=== PATIENT | male | born 1940 | race Caucasian/White ===

== ENCOUNTER 2017-01-25 09:29 | Emergency (ER) | payer MEDICARE, OTHER ==
[~2017-01-25] VITALS: Ht 180.3 cm; Wt 111.4 kg
[~2017-01-25 09:29] MED LIST: IBUP200T48 PO; LEVO200T PO; TAM4 PO
[2017-01-25 09:39] VITALS: BP 187/59; PULSE 61; RESP 24; O2SAT 96
--- NOTE | 2017-01-25 09:42 | ED.REPORT ---
HPI-General Illness Date of Service January 25, 2017 ED Provider: Jairo Dalton MD Pt is a 76 year old male with a hx of DM and a thyroidectomy presenting to the ED complaining of a suspected Levothyroxine imbalance. Associated symptoms include diaphoresis, worse at night, muscle cramping, back spasms, fatigue, and dyspnea on exertion onset 2 weeks ago. Denies dysuria, decreased urination, chest pain or hx of heart problems. He reports that his dosage of Levothyroxine changed from 50-100mg 2 months ago and that he was advised by his PCP to come in to the ER if he developed his current symptoms. He reports that these symptoms began about 6 months ago, and has been seeing his PCP Dr. Taryn Watson regularly for blood tests and medication adjustment. Pt states that the next available appointment with his PCP is in 3 months. Nursing Notes Stated Complaint: THYROXIAN IMBALANCE Chief Complaint: General Complaint Nursing Notes Reviewed: Yes Allergies: Coded Allergies: Sulfa (Sulfonamide Antibiotics) (Verified Allergy, Severe, SWELLING, ) Scheduled Levothyroxine (Levothyroxine) 100 Mcg Tablet 100 MCG PO M,W,,SA Levothyroxine (Levothyroxine) 100 Mcg Tablet 200 MCG PO T,,DESAI Levothyroxine (Levothyroxine) 50 Mcg Tablet 50 MCG PO DAILY General Time Seen by MD: 09:39 Chief Complaint Other (Fatigue) Hx Obtained From: Patient, Spouse Arrived By: Walk-in Sudden in Onset?: No Onset Occurred: 1 week ago Symptom Duration: Since onset Severity: Current: No pain currently Severity: Maximum: No pain Recent Healthcare: No recent doctor visit, No recent hospitalization Similar Sx Previous: Yes Past Medical History Past Medical History Nephrolithiasis Reports: Diabetes mellitus Past Surgical History Prostate surgery - cold laser Kidney stone removal Thyroidectomy Family History Noncontributory Smoking History Unknown if Ever Smoker Social History Alcohol Use: Denies alcohol use Other Social History: Ambulatory Status Independent Review of Systems Full Review of Systems Constitutional: Reports: Fatigue Respiratory: Reports: Dyspnea on exertion Cardiovascular: Denies: Chest pain Male: Denies Dysuria, Denies Urination decreased Skin: Reports Diaphoresis Complete sys rev & neg: except as marked. Physical Exam Vital Signs Vital Signs Date Time Temp Pulse Resp B/P Pulse Ox O2 Delivery O2 Flow Rate FiO2 01/25/17 12:15 36.6 65 16 171/68 96 Room Air 01/25/17 12:06 36.6 65 16 171/68 96 Room Air 01/25/17 09:39 36.6 61 24 187/59 96 Room Air Initial VS: Reviewed General/Constitutional: Well-developed, Well-nourished Head / Eyes: Atraumatic, Normocephalic, PERRL ENT: Conjunctiva normal Neck: Supple Respiratory: Breath sounds normal, Clear to auscultation, No respiratory distress Abdomen / GI: No distention Skin: Warm, Dry, No cyanosis Neurologic: Alert, Oriented, Nonfocal Psychiatric: Mood/affect normal, Behavior normal, Normal thought content Cardiovascular: Heart rate NL, Regular rhythm, Heart sounds NL, No gallop, No murmurs, No rubs Interpretation & Diagnostics Lab Results Interpretation Result Diagram: 01/25/17 1010 01/25/17 1010 Test 01/25/17 10:10 01/25/17 12:25 White Blood Count 9.3th/mm3 (3.8-10.1) Red Blood Count 4.52mil/mm3 (4.40-5.80) Hemoglobin 12.9g/dL (13.8-17.2) Hematocrit 38.9% (41.0-50.0) Mean Corpuscular Volume 86.1fL (81-100) Mean Corpuscular Hemoglobin 28.5pg (27.0-35.0) Mean Corpuscular Hemoglobin Concent 33.2% (32.0-37.0) Red Cell Distribution Width 13.7% (12.3-15.4) Platelet Count 231bil/L (150-400) Neutrophils (%) (Auto) 61.1% (40-74) Lymphocytes (%) (Auto) 23.3% (14-46) Monocytes (%) (Auto) 13.1% (4-12) Eosinophils (%) (Auto) 2.3% (0-5) Basophils (%) (Auto) 0.1% (0-3) Sodium Level 141mEq/L (134-144) Potassium Level 4.0mEq/L (3.5-5.2) Chloride Level 104mEq/L (97-108) Carbon Dioxide Level 23mmol/L (18-29) Blood Urea Nitrogen 21mg/dL (8-27) Creatinine 0.93mg/dL (0.76-1.27) Estimat Glomerular Filtration Rate 84mL/min (>59) Glucose Level 113mg/dL (60-99) Calcium Level 9.3mg/dL (8.5-10.1) Magnesium Level 2.1mg/dL (1.6-2.6) Total Bilirubin 0.4mg/dL (0.0-1.2) Aspartate Amino Transf (AST/SGOT) 11U/L (0-50) Alanine Aminotransferase (ALT/SGPT) 11U/L (0-44) Alkaline Phosphatase 90U/L (25-160) Troponin T 0.010ug/L (0.0-0.011) Pro-B-Type Natriuretic Peptide 440.7pg/mL (0-486) Total Protein 6.5g/dL (6.4-8.4) Albumin 3.7g/dL (3.4-5.0) Thyroid Stimulating Hormone (TSH) 0.005uIU/mL (0.450-4.500) Hold Marie Top Tube Received (Received) Hold Urine Received (Received) ECG Interpretation ECG Interpretation: 1st degree V block. No acute ST segment changes. Time: 10:35 Interpreted by: ED physician Normal ECG Interpretation: Normal rate (61), Normal sinus rhythm X-Ray Chest Interpretation Chest Xray Interpretation: IMPRESSION: No acute cardiopulmonary disease process. Dictated by: Jazmine Blair MD, PhD on 01/25/2017 at 10:10 View: Portable, 1 view Interpretation / Wet Read by: Interpret - Radiologist Re-Eval/Medical Decision Time of Eval: 11:46 Patient Status: Condition improved Re-Evaluation/Progress Note: Discussed lab results and plan to decrease dosage to 50 micrograms per day. Pt understands and agrees with plan. Consultation : Referral / Consult Name: Eliud Cantu DO Consulted With: Primary care physician Call Returned at: 12:00 Note: Discussed with Dr. Cantu health and wellness sales consultant for Dr. Garcia. Counseled Regarding: Diagnosis, Lab results, Need for follow-up, When/why to return to ED Discharge & Departure Primary Impression: Iatrogenic hyperthyroidism Disposition: Home Discharge Condition All VS Reviewed: Yes Condition: Improved Additional Instructions: Your emergency room visit today included interview, examination, and laboratory work. Your labs show that your thyroid levels are too high. Decrease your dosage back to 50 micrograms for now and follow up with your primary care physician; call tomorrow for an appointment in the next week. Return emergency Department for chest pain and increasing shortness of breath or fevers. Referrals: Taryn Garcia MD (PCP) Scribe Attestation Portions of this note were transcribed by Meka Granados. I, Dr. Dalton personally performed the history, physical exam and medical decision-making; I reviewed and confirmed the accuracy of the information in the transcribed note. Signed by : José Antonio Manning, 01/25 at 1215. copies to: Taryn Garcia MD, Donald L MD January 25, 2017 09:42 MEKA GRANADOS January 25, 2017 10:16
--- NOTE | 2017-01-25 10:11 | DRSVH ---
PROCEDURE: X-RAY CHEST ONE VIEW, PORTABLE ([id number]) INDICATIONS: Dyspnea on exertion. TECHNIQUE: One view of the chest was acquired. COMPARISON: [facility], , CHEST 1VW (PORTABLE), 09/09/2010, 11:47. FINDINGS: Surgical changes and devices: None. Lungs and pleura: No pleural effusions or pneumothorax. Lungs are clear no acute opacities. Scarrin g in the left lung base is stable compared to the prior examination. Mediastinum: Mediastinal contours appear normal. Heart size is normal. Bones and chest wall: No suspicious bony lesions. Overlying soft tissues appear unremarkable. IMPRESSION: No acute cardiopulmonary disease process. Dictated by: Jazmine Blair MD, PhD on 01/25/2017 at 10:10 Approved by: Jazmine Blair MD, PhD on 01/25/2017 at 10:10
[2017-01-25 10:32] LABS: Mean Corpuscular Volume 86.1 fL (81-100)
[2017-01-25 10:33] LABS: BASOPHILS % (AUTO) 0.1 % (0-3); EOSINOPHILS % (AUTO) 2.3 % (0-5); MONOCYTES % (AUTO) 13.1 % (4-12); Mean Corpuscular Hemoglobin 28.5 pg (27.0-35.0); NEUTROPHILS % (AUTO) 61.1 % (40-74); Platelet Count 231 bil/L (150-400)
[2017-01-25 10:50] LABS: TROPONIN T 0.01 ug/L (0.0-0.011)
[2017-01-25 11:01] LABS: Magnesium 2.1 mg/dL (1.6-2.6)
[2017-01-25] MEDS ORDERED: LEVO100T6 PO ×2 (11:32)
[2017-01-25 12:06] VITALS: BP 171/68; PULSE 65; RESP 16; O2SAT 96
[2017-01-25] MEDS ORDERED: LEVO50TA6 PO (12:08)
[2017-01-25 12:15] VITALS: BP 171/68; PULSE 65; RESP 16; O2SAT 96
== END 2017-01-25 12:16 | disposition home or self-care (01) ==
LOC: SED 09:29
DX: E05.90 Thyrotoxicosis, unspecified without thyrotoxic crisis or storm (principal); E11.9 Type 2 diabetes mellitus without complications; Z79.899 Other long term (current) drug therapy; Z88.2 Allergy status to sulfonamides